=== PATIENT | male | born 1985 | race Caucasian/White ===

== ENCOUNTER 2016-08-22 00:52 | Emergency (ER) | payer OTHER ==
[2016-08-22 01:47] VITALS: BP 152/95
== END 2016-08-22 01:47 | disposition home or self-care (01) ==
LOC: ED 00:52
DX: H66.91 Otitis media, unspecified, right ear (principal); J30.2 Other seasonal allergic rhinitis; R03.0 Elevated blood-pressure reading, without diagnosis of hypertension; F17.200 Nicotine dependence, unspecified, uncomplicated; J02.9 Acute pharyngitis, unspecified
CPT/HCPCS: J1885

== ENCOUNTER 2017-10-15 19:14 | Emergency (ER) | payer MEDICAID ==
[~2017-10-15] VITALS: Ht 177.8 cm; Wt 79.8 kg
[2017-10-15 19:17] VITALS: Ht 177.8 cm; Wt 79.8 kg
[2017-10-15 19:55] LABS: BASOPHIL % 0.3 % (0-2); PLATELET COUNT 272 x10^3mcL (130-400); RED CELL DISTRIBUTION WIDTH 13.5 % (11.5-14.5)
[2017-10-15 20:02] LABS: CALCIUM 8.4 mg/dL (8.5-10.1); CARBON DIOXIDE 23.9 mmol/L (21-32); CHLORIDE SERUM 107 mmol/L (98-107); CREATININE SERUM 1.3 mg/dL (0.7-1.3); GFR1 > 60 mL/min; GLUCOSE SERUM 93 mg/dL (74-106); POTASSIUM SERUM 3.8 mmol/L (3.5-5.1); SODIUM SERUM 143 mmol/L (136-145)
[2017-10-15 20:07] LABS: ALBUMIN 3.4 g/dL (3.4-5.0); ALKALINE PHOSPHATASE 80 U/L (46-116); ALT/SGPT 33 U/L (16-63); AST/SGOT 31 U/L (15-37); BILIRUBIN TOTAL 0.33 mg/dL (0.20-1.00); TOTAL PROTEIN, SERUM 6.9 g/dL (6.4-8.2)
[2017-10-15 22:11] VITALS: BP 131/67
== END 2017-10-15 22:05 | disposition short-term general hospital (02) ==
LOC: ED 19:14
PROVIDERS: Emergency Medicine
DX: S22.42XA Multiple fractures of ribs, left side, initial encounter for closed fracture (principal); S09.90XA Unspecified injury of head, initial encounter; R10.9 Unspecified abdominal pain; V29.9XXA Motorcycle rider (driver) (passenger) injured in unspecified traffic accident, initial encounter; Y93.89 Activity, other specified; Y92.89 Other specified places as the place of occurrence of the external cause; Y99.8 Other external cause status
CPT/HCPCS: 83880; J1885; J2405; J3010; J7030; Q0092; Q9967

== ENCOUNTER 2018-08-27 15:05 | Emergency (ER) | payer MEDICAID ==
[~2018-08-27] VITALS: Ht 170.2 cm; Wt 79.4 kg
[2018-08-27 15:23] VITALS: BP 134/95; Ht 170.2 cm; Wt 79.4 kg
== END 2018-08-27 18:10 | disposition home or self-care (01) ==
LOC: ED 15:05
DX: S13.4XXA Sprain of ligaments of cervical spine, initial encounter (principal); S29.011A Strain of muscle and tendon of front wall of thorax, initial encounter; V49.9XXA Car occupant (driver) (passenger) injured in unspecified traffic accident, initial encounter; Y93.I9 Activity, other involving external motion; Y92.413 State road as the place of occurrence of the external cause; Y99.8 Other external cause status

== ENCOUNTER 2019-01-13 09:19 | Emergency (ER) | payer SELFPAY ==
[~2019-01-13] VITALS: Ht 177.8 cm; Wt 73.9 kg
[2019-01-13 09:26] VITALS: Ht 177.8 cm; Wt 73.9 kg
[2019-01-13 10:13] LABS: AMPHETAMINE QUAL UR POSITIVE (See below)
[2019-01-13 11:01] LABS: BASOPHIL % 0.3 % (0-2); PLATELET COUNT 225 x10^3mcL (130-400); RED CELL DISTRIBUTION WIDTH 13.4 % (11.5-14.5)
[2019-01-13 11:29] LABS: CALCIUM 9.3 mg/dL (8.5-10.1); CARBON DIOXIDE 28.5 mmol/L (21-32); CHLORIDE SERUM 101 mmol/L (98-107); CREATININE SERUM 1.2 mg/dL (0.7-1.3); GFR1 > 60 mL/min; GLUCOSE SERUM 114 mg/dL (74-106); POTASSIUM SERUM 3.8 mmol/L (3.5-5.1); SODIUM SERUM 143 mmol/L (136-145)
[2019-01-13 11:36] LABS: ALBUMIN 4.1 g/dL (3.4-5.0); ALKALINE PHOSPHATASE 71 U/L (46-116); ALT/SGPT 104 U/L (16-63); AST/SGOT 83 U/L (15-37); BILIRUBIN TOTAL 2.8 mg/dL (0.20-1.00); CHOLESTEROL 225 mg/dL (<200); HDL CHOLESTEROL 125 mg/dL (40-60); LIPASE 56 IU/L (73-393); MAGNESIUM 1.8 mg/dL (1.8-2.4); TOTAL PROTEIN, SERUM 8.3 g/dL (6.4-8.2)
[2019-01-13 11:45] LABS: microscopic required? NO
[2019-01-13 12:36] LABS: UA SPECIFIC GRAVITY <=1.005 (1.005-1.035); urine erythrocyte NEGATIVE (NEGATIVE)
[2019-01-13 13:25] VITALS: BP 149/104
== END 2019-01-13 13:25 | disposition home or self-care (01) ==
LOC: ED 09:19
PROVIDERS: Emergency Medicine
DX: F10.239 Alcohol dependence with withdrawal, unspecified (principal); F17.210 Nicotine dependence, cigarettes, uncomplicated
CPT/HCPCS: 82962; 99406; G0480; J2060; J3490; J7030; Q0092